=== PATIENT | male | born 1980 ===

== ENCOUNTER 2019-03-31 12:53 | Emergency (ER) | payer OTHER ==
[~2019-03-31] VITALS: Ht 185.4 cm; Wt 77.3 kg
[2019-03-31] MEDS ORDERED: ALBUTEROL SULFATE HFA 90 MCG/PUFF 8 GM INHALER IH ONE (15:00)
[2019-03-31 16:08] VITALS: BP 119/61
[2019-03-31] MEDS ORDERED: DOXYCYCLINE HYCLATE 100 MG CAPSULE PO ONE (16:15)
== END 2019-03-31 16:32 | disposition home or self-care (01) ==
LOC: EMS 12:56
DX: J18.9 Pneumonia, unspecified organism (principal); J45.909 Unspecified asthma, uncomplicated
CPT/HCPCS: 93005; 94640; J3535